=== PATIENT | female | born 1985 | race African-American/Black ===

== ENCOUNTER 2016-10-09 15:00 | Emergency (ER) | payer OTHER ==
[~2016-10-09] VITALS: Ht 162.6 cm; Wt 84.8 kg
[~2016-10-09 15:00] MED LIST: IBUPROFEN 600600 M1 PO; NORCO 5-325 TA1 EACH PO; PREDNISONE 5 MG5 M1; TRAMADOL 50 MG50 MG PO; ZANTAC 150MG T150 M1 PO; ZOFRAN ODT4 MG PO; ZPAK
[2016-10-09] MEDS ORDERED: HYDROCODONE-AP1 EAC6 PO (16:22)
[2016-10-09] MEDS ORDERED: AMOXICILLIN 50500 MG PO (16:29)
== END 2016-10-09 19:05 | disposition home or self-care (01) ==
LOC: ER 15:00
DX: S62.306A Unspecified fracture of fifth metacarpal bone, right hand, initial encounter for closed fracture (principal); F17.210 Nicotine dependence, cigarettes, uncomplicated; Z88.8 Allergy status to other drugs, medicaments and biological substances; W23.0XXA Caught, crushed, jammed, or pinched between moving objects, initial encounter; Y93.89 Activity, other specified; Y92.89 Other specified places as the place of occurrence of the external cause; Y99.8 Other external cause status

== ENCOUNTER 2017-08-20 15:31 | Emergency (ER) | payer OTHER ==
[~2017-08-20] VITALS: Ht 162.6 cm; Wt 104.3 kg
[~2017-08-20 15:31] MED LIST changes: +AMOXICILLIN 50500 MG PO; +HYDROCODONE-AP1 EAC6 PO
[2017-08-20 15:50] LABS: URINE BILIRUBIN NEGATIVE (Negative); URINE BLOOD NEGATIVE (Negative); URINE CLARITY CLEAR; URINE COLOR YELLOW; URINE GLUCOSE-RANDOM* NEGATIVE (Negative); URINE KETONES NEGATIVE (Negative); URINE LEUKOCYTES NEGATIVE (Negative); URINE NITRITE NEGATIVE (Negative); URINE PROTEIN (DIPSTICK) NEGATIVE (Negative); URINE SPECIFIC GRAVITY 1.025 (1.005-1.035); URINE UROBILINOGEN 0.2 E.U./dl (0.2-1.0)
[2017-08-20 19:05] LABS: ABSOLUTE NEUTROPHILS 3.3 thou/uL (1.4-8.2); BASOPHILS 0.6 % (0.0-2.0); EOSINOPHILS 0.9 % (0.0-3.0); HEMATOCRIT 36.4 % (37.0-47.0); HEMOGLOBIN 11.9 gm/dL (12.0-15.0); LYMPHOCYTES 36.1 % (24.0-44.0); MCH 27.8 pg (26.0-34.0); MCHC 32.8 g/dL (28.0-37.0); MCV 84.9 fL (80.0-100.0); MONOCYTES 5.5 % (1.0-8.0); PLATELET COUNT 421 thou/uL (150-400); POLYS 56.9 % (36.0-66.0); RBC 4.29 mil/uL (4.20-5.00); WBC 5.8 thou/uL (4.0-11.0)
[2017-08-20 19:14] LABS: CALCIUM 8.6 mg/dL (8.5-10.1); CREATININE 0.7 mg/dL (0.6-1.0); POTASSIUM 4.3 mmol/L (3.5-5.1)
[2017-08-20 19:20] LABS: ALBUMIN 3.5 g/dL (3.4-5.0); TOTAL BILIRUBIN 0.2 mg/dL (<0.1-1.0); TOTAL PROTEIN 7.3 g/dL (6.4-8.2)
[2017-08-20] MEDS ORDERED: BENTYL 20 MG TA20 M1 PO (20:39)
[2017-08-20] MEDS ORDERED: ZOFRAN ODT4 M1 PO (20:39)
[2017-08-20] MEDS ORDERED: MOBIC15 MG PO (21:01)
[2017-08-20] MEDS ORDERED: TRAMADOL 50 MG50 MG PO (21:02)
[2017-08-20] MEDS ORDERED: HYDROCODONE-AP1 EAC6 PO (21:05)
== END 2017-08-20 21:17 | disposition home or self-care (01) ==
LOC: ER 15:31
PROVIDERS: Nurse Practitioner Family; Physician Assistant
DX: R10.9 Unspecified abdominal pain (principal); R11.2 Nausea with vomiting, unspecified; Z88.5 Allergy status to narcotic agent; Z88.8 Allergy status to other drugs, medicaments and biological substances; F17.210 Nicotine dependence, cigarettes, uncomplicated

== ENCOUNTER 2018-10-26 23:42 | Emergency (ER) | payer OTHER ==
[~2018-10-26] VITALS: Ht 165.1 cm; Wt 121.6 kg
[~2018-10-26 23:42] MED LIST changes: +BENTYL 20 MG TA20 M1 PO; +MOBIC15 MG PO; +ZOFRAN ODT4 M1 PO
[2018-10-26] MEDS ORDERED: UNICOMPLEX M TA1 TA1 PO (23:50)
[2018-10-27] MEDS ORDERED: IBUPROFEN 400400 M2 PO (01:51)
[2018-10-27] MEDS ORDERED: FLEXERIL PO (01:51)
[2018-10-27 02:11] VITALS: BP 132/49
== END 2018-10-27 02:23 | disposition home or self-care (01) ==
LOC: ER 23:42
DX: M62.830 Muscle spasm of back (principal); M25.561 Pain in right knee; F17.210 Nicotine dependence, cigarettes, uncomplicated; Z88.8 Allergy status to other drugs, medicaments and biological substances; Z88.6 Allergy status to analgesic agent; Z88.0 Allergy status to penicillin; Z90.49 Acquired absence of other specified parts of digestive tract; V48.4XXA Person boarding or alighting a car injured in noncollision transport accident, initial encounter; Y92.89 Other specified places as the place of occurrence of the external cause; Y93.89 Activity, other specified; Y99.8 Other external cause status

== ENCOUNTER 2019-02-27 17:00 | Inpatient (IN) | payer OTHER ==
[~2019-02-27] VITALS: Ht 165.1 cm; Wt 149.7 kg
--- NOTE | ~2019-02-27 | P ---
[facility] [place] [address] PROCEDURE REPORT Name: HIGUERAGEORGES Room #: 458-P [facility] IN M.R.#: [id number] Admission: 02/27/19 Attend Phys: Joselito Villalpando MD Discharge: 03/06/19 Date of : 89 Report #: [id number] THIS REPORT FOR: //name// CC: FAM unknown Joselito Villalpando INPATIENT COLONOSCOPY BRIEF HISTORY: The patient is a 33-year-old woman who recently was on a trip to [place] and when she returned, she has had persistent nausea and vomiting and diarrhea. She also has had severe abdominal pain. She does not have any symptoms prior to her trip to [place]. PREOPERATIVE DIAGNOSES: Persistent diarrhea and abdominal pain. POSTOPERATIVE DIAGNOSES: 1. Few diverticula scattered throughout the colon. 2. Small internal hemorrhoids. MEDICATIONS: Deep sedation with propofol per anesthesia. SPECIMENS: 1. Biopsies proximal colon, rule out microscopic colitis. 2. Biopsies of distal colon and rectum, rule out colitis. ESTIMATED BLOOD LOSS: 3 mL. PROCEDURE: Colonoscopy to cecum and terminal ileum with biopsy. FINDINGS: Prior to propofol sedation, procedure of colonoscopy discussed with the patient as well potential risks and its complications. She indicates she understands and desires to proceed. DESCRIPTION OF PROCEDURE: With the patient in left lateral decubitus position, digital examination was completed which revealed no abnormalities. Subsequently, the Olympus video colonoscope was introduced in the rectum, advanced under direct vision to the cecum. The cecum was filled with greenish solid material. This could not be aspirated away. I could only see a small amount of the cecal mucosa and the cecal mucosa that I could see was normal. However, I could see the ileocecal valve and we were able to intubate the ileum and examined the distal segment of terminal ileum. There was some retained material in the distal ileum. The mucosa was normal. No ulcerations or inflammatory changes were seen. At that point, the scope was slowly withdrawn and careful circumferential views were obtained. Upon slow withdrawal of the scope, the mucosa was inspected. The prep in the cecum was very poor. However, as far as the remainder of the colon, much of the prep was quite good. However, in particular the left colon, there were a few scattered areas of semi-solid [facility] [address] [address] PROCEDURE REPORT Name: GEORGES HIGUERA Roland Room #: 458-P [facility] IN [facility].#: [id number] Admission: 02/27/19 Attend Phys: Joselito Villalpando MD Discharge: 03/06/19 Date of : 89 Report #: [id number] material which could not be aspirated. However, much of the mucosa could be seen and there was no evidence of inflammatory disease, no ulcers were seen. Scope was withdrawn in the rectum, no abnormalities were seen. Upon retroflexion, small hemorrhoids were seen. Scope was withdrawn. The patient tolerated the procedure well. CONDITION OF THE PATIENT UPON DISCHARGE: Following procedure, the patient drowsy, aroused, conversant. DISPOSITION: The patient with persistent abdominal pain and diarrhea following a trip to [place]. No evidence of colitis on exam today. Source of her diarrhea is not entirely clear. It was thought she had traveler's diarrhea, but has been on empiric antibiotics and workup to date has been nondiagnostic. At this point, we would treat symptomatically and follow up on biopsies. Withdrawal time from the cecum was 7 minutes 12 seconds. By: [id number] Juanito Milton MD /nt
[~2019-02-27 17:00] MED LIST changes: +FLEXERIL PO; +IBUPROFEN 400400 M2 PO; +UNICOMPLEX M TA1 TA1 PO
[2019-02-27 17:01] VITALS: BP 166/53
[2019-02-27 17:30] LABS: URINE BILIRUBIN NEGATIVE (Negative); URINE BLOOD NEGATIVE (Negative); URINE CLARITY CLEAR; URINE COLOR YELLOW; URINE GLUCOSE-RANDOM* NEGATIVE (Negative); URINE KETONES NEGATIVE (Negative); URINE LEUKOCYTES-REFLEX NEGATIVE (Negative); URINE NITRITE-REFLEX NEGATIVE (Negative); URINE PROTEIN (DIPSTICK) NEGATIVE (Negative); URINE SPECIFIC GRAVITY 1.015 (1.005-1.035); URINE UROBILINOGEN 0.2 E.U./dl (0.2-1.0)
[2019-02-27 17:41] LABS: ABSOLUTE NEUTROPHILS 6.6 thou/uL (1.4-8.2); BASOPHILS 0.5 % (0.0-2.0); HEMATOCRIT 33.3 % (37.0-47.0); HEMOGLOBIN 10.8 gm/dL (12.0-15.0); MCH 28.3 pg (26.0-34.0); MCHC 32.4 g/dL (28.0-37.0); MCV 87.3 fL (80.0-100.0); MONOCYTES 5.4 % (1.0-8.0); PLATELET COUNT 389 thou/uL (150-400); POLYS 74.1 % (36.0-66.0); RBC 3.81 mil/uL (4.20-5.00); RDW 14.6 % (10.5-14.5); WBC 8.9 thou/uL (4.0-11.0)
[2019-02-27 17:48] LABS: CALCIUM 8.6 mg/dL (8.5-10.1)
[2019-02-27] MEDS ORDERED: PROTONIX40 M1 PO (17:48)
[2019-02-27] MEDS ORDERED: MELATONIN5 M1 PO (17:48)
[2019-02-27 17:54] LABS: ALBUMIN 3.1 g/dL (3.4-5.0); TOTAL BILIRUBIN 0.2 mg/dL (<0.1-1.0); TOTAL PROTEIN 6.7 g/dL (6.4-8.2)
--- NOTE | 2019-02-27 19:50 | NUR ---
PATIENT WAS FEELING VERY ANXIOUS AFTER ADMINISTRATION OF COMPAZINE. PHYSICIAN NOTIFIED. ADDITIONAL ORDERS RECEIVED
--- NOTE | 2019-02-27 21:54 | NUR ---
PATIENT GIVEN ANOTHER DOSE OF PAIN MEDICATIONS. SIDE EFFECTS EXPLAINED TO AVOID PANIC AFTER RECEIVING MEDICATION. PATIENT COACHED TO TAKE SLOW DEEP BREATHS UNTIL SIDE EFFECTS SUBSIDED. PATIENT WILL BE ASSISTED TO RESTROOM SHORTLY. ADVISED THAT A STOOL SAMPLE HAS BEEN ORDERED IF PATIENT ABLE TO PROVIDE.
[2019-02-27 22:27] VITALS: BP 126/74
--- NOTE | 2019-02-27 22:28 | NUR ---
HAND OFF TOOL PRINTED TO 4 EAST
--- NOTE | 2019-02-27 22:30 | NUR ---
ATTEMPTED TO CALL REPORT. NURSE WILL CALL BACK
[2019-02-27 22:49] VITALS: BP 142/64
--- NOTE | 2019-02-27 22:50 | NUR ---
REPORT TO INPATIENT NURSE, Alex ZAMUDIO
--- NOTE | 2019-02-28 04:20 | NUR ---
PATIENT ARRIVED ON UNIT AT 2252 VIA W/C ACCOMPANIED BY ED PERSONEL. PATIENT ALERT AND ORIENTED X4. C/O PAIN. MED GIVEN. DENIES N/V AT THIS TIME. WAS GIVEN SPRITE WHICH SHE DRANK WITH NO PROBLEM. SLEPT MOST OF NIGHT.
[2019-02-28 04:22] VITALS: BP 119/54
[2019-02-28 08:17] VITALS: BP 124/66
--- NOTE | 2019-02-28 12:08 | NUR ---
PT A&OX4, IV INFUSING FLUIDS W/O COMPS. AMBULATES WITH STAND BY ASSIST. STOOL COLLECTED AND SENT TO LAB, STOOL WAS ALMOST FORMED, BROWN W/O FOUL SMELL. PT IS PLACED ON C DIFF ISOLATION FOR PRECAUTION. PT HAVING ABD PAIN WITH NAUSEA THIS AM, IV PAIN AND ANTIEMETIC GIVEN. WILL CONT POC.
[2019-02-28 17:18] VITALS: BP 138/71
--- NOTE | 2019-03-01 00:35 | NUR ---
ASSESSMENT COMPLETED.PT C/O PAIN ON HER ABD,MANAGED WITH MED.TYLENOL ALSO GIVEN FOR HEADACHE,EFFECTIVE.PT STARTED HAVING LOOSE STOOL THIS SHIFT,SAMPLE COLLECTED AND SENT DOWN.PT ON PRESUMPTIVE CDIFF,ISOLATION PREACUTIONS ENFORCED.PT UP ADLIB IN ROOM.PT RESTING COMFORTABLY ON HER BED AT THIS TIME.IVF INFUSING .CALL LIGHT WITHIN REACH.
[2019-03-01 03:48] VITALS: BP 124/63
[2019-03-01 08:02] VITALS: BP 114/52
--- NOTE | 2019-03-01 15:28 | NUR ---
Manufacturing Specialist visited with the pt at bedside. She is a&ox4 and reports continued nausea/vomiting and abd pain. She notes that she is indep with gait and adl's and was recently on a cruise. She works and does not currently have health insurance. She was visited by [employer] and will work with them on the milla application. She has a pcp Dr. Sunita Escobar for f/u care. Pharmacy discount card and safteynet packet provided. Will follow along should the pt need script assistance at vt.
[2019-03-01 16:05] VITALS: BP 141/88
[2019-03-01 17:27] LABS: HEMATOCRIT 32.7 % (37.0-47.0); HEMOGLOBIN 10.8 gm/dL (12.0-15.0); MCHC 32.9 g/dL (28.0-37.0); RBC 3.85 mil/uL (4.20-5.00); RDW 14.3 % (10.5-14.5); WBC 5.4 thou/uL (4.0-11.0)
[2019-03-01 17:37] LABS: ALBUMIN 3.2 g/dL (3.4-5.0); CALCIUM 8.9 mg/dL (8.5-10.1); CREATININE 0.9 mg/dL (0.6-1.0); POTASSIUM 4.1 mmol/L (3.5-5.1); TOTAL BILIRUBIN 0.3 mg/dL (<0.1-1.0); TOTAL PROTEIN 6.8 g/dL (6.4-8.2)
--- NOTE | 2019-03-01 19:38 | NUR ---
Assumed care of pt at 0700. Pt a&ox4. C/o nausea and abdominal pain. Pain controlled with prn pain meds. Pt accidentally pulled IV out. New IV placed on pt's left AC. Up ad kerrie. IVF and antibiotics infusing. Call light within reach.
[2019-03-01 21:32] VITALS: BP 128/75
[2019-03-02 04:30] VITALS: BP 123/57
[2019-03-02 05:13] LABS: HEMATOCRIT 32.6 % (37.0-47.0); HEMOGLOBIN 10.6 gm/dL (12.0-15.0); MCH 27.7 pg (26.0-34.0); MCHC 32.6 g/dL (28.0-37.0); MCV 84.7 fL (80.0-100.0); RBC 3.85 mil/uL (4.20-5.00); RDW 14.1 % (10.5-14.5); WBC 4.7 thou/uL (4.0-11.0)
[2019-03-02 05:41] LABS: ALBUMIN 3.1 g/dL (3.4-5.0); CALCIUM 8.9 mg/dL (8.5-10.1); MAGNESIUM 1.7 mg/dL (1.8-2.4); POTASSIUM 4.2 mmol/L (3.5-5.1); TOTAL BILIRUBIN 0.3 mg/dL (<0.1-1.0); TOTAL PROTEIN 6.7 g/dL (6.4-8.2)
--- NOTE | 2019-03-02 06:16 | NUR ---
A/O. Compained pain in abdomen 10/10 at AM , pain medicaion given, patient claimed of no pain relief. CHOCOLATE PRODUCTION MACHINE OPERATOR Addis called, pain medication order given and administrated( see EMAR). Patient claimed pain relieved from 10 to 9. Refused Bendry. Claimed BM twice. The staff saw the second BM, brown color. Patient asked for food other than clear liquid, the staff refused and explained the diet to the patient. Bed rest now.
[2019-03-02 08:52] VITALS: BP 121/58
--- NOTE | 2019-03-02 10:51 | NUR ---
Assess due to high BMI 55=extreme class III obesity. admit with n/v/d and workup continues. Cdiff negative. Starting day 3 clear liquids, pt has voiced recent hunger but needs to remain on clears for now. Can offer Ensure Clear bid for added protein. Low nutrition risk at this time.
--- NOTE | 2019-03-02 15:33 | NUR ---
Assumed care of pt 0700. Pt a&ox4. Prn fentanyl given. Pt states . said he will change pain medication to dilaudid. paged and verified, stated he will make the change himself. Pt's sister ordered breadsticks for pt. Pt is on clear liquid diet. Pt education provided. Pt decides to eat breadsticks. Pt nauseous and vomiting. IVF and IV antibiotics infusing. Up ad kerrie in room. Call light within reach. Will continue to monitor.
[2019-03-02 15:44] VITALS: BP 153/80
[2019-03-02 19:48] VITALS: BP 140/69
--- NOTE | 2019-03-03 03:11 | NUR ---
ASSUMED PT CARE 1900. PT ALERT AND ORIENTED. REASSESSMENT COMPLETE. VSS. IV DRESSING C/D/I. PT NON COMPLIANT WITH CLEAR LIQUID DIET, VOMITING EPISODE X1. PT REPORTED 1 FORMED BM. CALL LIGHT AND PERSONAL BELONINGS WITHIN REACH. NPO AT MIDNIGHT. WILL CONTINUE POC UNTIL EOS.
[2019-03-03 04:09] VITALS: BP 132/56
[2019-03-03 07:29] VITALS: BP 132/65
--- NOTE | 2019-03-03 11:06 | NUR ---
PATIENT CARE WAS ASSUMED AT 0715.PATIENT IS ALERT AND ORIENTED X4.PATIENT IS NPO AFTER MIDNIGHT FOR EGD.PATIENT HAS SOME NAUSEA, AND PAIN.MEDICATIONS WERE GIVEN. IV IS PATENT AND HAS FLUIDS INFUSING.PT IS ABLE TO AMBULATE WITH STAND BY ASSIST DUE TO IV.PT HAS CALL LIGHT,PHONE, AND PERSONAL BELONGINGS WITHIN REACH.
[2019-03-03 16:10] VITALS: BP 129/86
[2019-03-03 22:57] VITALS: BP 147/58
[2019-03-04 04:11] VITALS: BP 102/44
--- NOTE | 2019-03-04 04:22 | NUR ---
ASSUMED PT CARE 190. PT ALERT AND ORIENTED. REASSESSMENT COMPLETE. VSS. IV DRESSING C/D/I. REPORTS PAIN, DENIES N/V. PT ATE SOME CRACKERS, DENIES ANY NAUSEA/VOMITING. EDUCATED PT ABOUT SLOWLY REINTRODUCING SOLID FOODS BACK INTO DIET. SIGNIFICANT OTHER AT BEDSIDE. CALL LIGHT AND PERSONAL BELONINGS WITHIN REACH, WILL CONTINUE POC UNTIL EOS.
[2019-03-04 08:12] VITALS: BP 133/70
[2019-03-04 15:20] VITALS: BP 102/51
--- NOTE | 2019-03-04 16:34 | NUR ---
PT VS STABLE THROUGHOUT SHIFT. PT TOLERATED BREAKFAST WELL, HOWEVER SHE THREW UP ENTIRE LUNCH. PT'S DIET CHANGED TO NPO AND PHYSICIAN COUNSELED HER REGARDING COMPLIANCE WITH DIET ORDERS. PT C/O PAIN THROUGHOUT SHIFT, PAIN MEDS GIVEN WHICH OFFERED RELIEF. PT RESTING COMFORTABLY.
[2019-03-04 19:32] VITALS: BP 134/65
[2019-03-05 05:09] VITALS: BP 128/84
[2019-03-05 06:47] LABS: HEMATOCRIT 33.2 % (37.0-47.0); HEMOGLOBIN 10.8 gm/dL (12.0-15.0); MCH 27.8 pg (26.0-34.0); MCHC 32.6 g/dL (28.0-37.0); MCV 85.4 fL (80.0-100.0); RBC 3.89 mil/uL (4.20-5.00); RDW 14.6 % (10.5-14.5); WBC 4.8 thou/uL (4.0-11.0)
[2019-03-05 07:01] LABS: APTT 24.5 Seconds (24.5-32.8); PROTIME 10.7 Seconds (9.3-11.4)
[2019-03-05 07:07] LABS: ALBUMIN 3.2 g/dL (3.4-5.0); CALCIUM 8.8 mg/dL (8.5-10.1); MAGNESIUM 1.7 mg/dL (1.8-2.4); POTASSIUM 3.9 mmol/L (3.5-5.1); TOTAL BILIRUBIN 0.3 mg/dL (<0.1-1.0); TOTAL PROTEIN 6.5 g/dL (6.4-8.2)
[2019-03-05 07:23] VITALS: BP 128/74
--- NOTE | 2019-03-05 08:12 | NUR ---
ASSESSMENTS CHARTED. C/O PAIN THROUGHOUT SHIFT. STARTED ATIVAN TO ENHANCE PAIN MEDS. PATIENT SLEPT MOST OF THE NIGHT. UP AT [place] IN ROOM.
[2019-03-05 19:27] VITALS: BP 136/78
--- NOTE | 2019-03-06 04:04 | NUR ---
PATIENT TRANSFERRED FROM [facility] ROOM 426 AT 1844 VIA BED WITH TWO CARPENTER FOREMAN'S. ALERT AND ORIENTED X4. COMPLAINING OF PAIN IMMEDIATELY UPON ARRIVAL, HOWEVER, IT WAS NOT TIME FOR PAIN MEDICATION. SHE STATED THAT THE DOCTOR SAW HER TODAY AND TOLD HER THAT HE WOULD GIVE HER A NEW ORDER FOR HER BREAKTHROUGH PAIN WHICH WOULD BE A PILL. THIS WAS NOT DONE, HOWEVER THERE WAS A CHANGE TO THE DOSEAGE OF DILAUDID IV PRN WELL THE TIME. AFTER THIS WAS EXPLAINED THE PATIENT INSISTED THAT HE BE CALLED FOR AN ORDER. THIS NURSE CONTACTED THE API DEVELOPER (JERAD) AND RECEIVED AN ORDER FOR HYDROCODONE PO PRN IT IS ON HER LIST OF HOME MEDICATIONS. THIS WAS NOT GIVEN DUE TO THE PATIENT STATING THAT SHE HAD EMESIS EARLIER DRINKING HER GO-LYTELY PREP AND A PILL WOULD NOT BE TOLERATED ON HER STOMACH IN THIS NURSES OPINION. PATIENT THEN ASKED FOR HER SCHEDULED LORAZEPAM THEN DECIDED SHE WOULD WAIT AND TAKE THIS WITH HER IV DILAUDED AND ZOFRAN. THIS WAS GIVEN TO HER AT APPROX. 2240. SCHEDULED IVPB'S WERE GIVEN W/O COMPLICATION AND CONTINUOUS FLUIDS ARE INFUSING. PATIENT REQUESTED A SHOWER AND TOOK ONE. TOLERATED HER PREP AND IS USING THE BSC WITH DARK LIQUID STOOL. PATIENT HAS BEEN NPO SINCE 03/05/19 AT 2359. CONSENT FORM IS NOT SIGNED AT TIME OF THIS NOTE - ON THE CHART. LONG CONVERSATION REGARDING WHY THE DOCTOR DID NOT ORDER ANY BREAKTHROUGH MEDICATION. PATIENT ALSO STATED THAT THE REASON SHE WAS TRANSFERRED WAS BECAUSE THE NURSES DID NOT LIKE HER. THIS NURSE STATED THAT PATIENTS DID NOT TRANSFER FOR THAT REASON. RESTING QUIETLY AT TIME OF NOTE. WILL MONITOR.
--- NOTE | 2019-03-06 06:02 | NUR ---
PATIENT SLEPT WELL DURING THE NIGHT AFTER MEDICATION. STOOLS ARE LIQUID AND LIGHT BROWN. IVF INFUSING W/O COMPLICATION. WILL MONITOR.
[2019-03-06 09:57] VITALS: BP 128/58
--- NOTE | 2019-03-06 15:06 | PATH ---
[facility] [address] [place] [address] PATHOLOGY RPT PROCEDURE Name: QUEENIE HIGUERA Room #: 458-P ADM IN M.R.#: [id number] Admission: 02/27/19 Date of : 89 Discharge: Report #: [id number] Path Case #: [id number] [facility] Accession Number: [id number] . 01 Material submitted: . PART A: duodenum - BX DUODENUM R/O CELIAC DZ PART B: stomach - BX ANTRUM R/O H PYLORI . 01 Clinical history: . Pre-OP DX: Nausea with vomiting, abdominal pain Post-OP DX: Esophagitis, gastritis, hiatal hernia . 02 Diagnosis: A. Small bowel, duodenum, biopsy: - Mild chronic inflammation. - Normal villous architecture. . B. Stomach, antrum, biopsy: - Chronic superficial gastritis, mild. - No evidence of Helicobacter pylori on immunoperoxidase stain. . (LUZ:jeff; 03/06/2019) QL/03/06/2019 . 02 Electronically signed: . Junior Mendoza MD, Pathologist NPI- [id number] . 01 Gross description: . A. Received in formalin labeled "Queenie Higuera, BX of duodenum, rule out celiac," are 2 segments of yee soft tissue measuring 0.8 x 0.2 x 0.2 cm in aggregate dimensions and ranging from 0.3 to 0.5 cm in maximum dimension. The specimen is submitted entirely in cassette A1. . B. Received in formalin labeled "Geovani Queenie, BX antrum, rule out H. pylori," are 2 segments of yee soft tissue measuring 0.7 x 0.2 x 0.2 cm in aggregate dimensions and ranging from 0.3 to 0.4 cm in maximum dimension. The specimen is submitted entirely in cassette B1. (TSD; 03/03/2019) TOB/TOB . 02 Pathologist provided ICD-10: K29.80, K29.30 . 02 CPT . 679915, 997898, D04774 Specimen Comment: A courtesy [place] of [place] [address] PATHOLOGY RPT PROCEDURE Name: QUEENIE HIGUERA S Room #: 458-P [facility] IN M.R.#: [id number] Admission: 02/27/19 Date of : 89 Discharge: Report #: [id number] Path Case #: [id number] Specimen Comment: [phone]. Specimen Comment: Report sent to Performed at: [address], [place], [place] [id number] MD Luis Medel MD Phone: [phone] Performed at: [address] [facility] [id number] MD Nereida Day MD Phone: [phone]
[2019-03-06 16:13] VITALS: BP 119/67
[2019-03-06] MEDS ORDERED: TUCKS1 EAC1 TOP (17:27)
[2019-03-06] MEDS ORDERED: NORCO 5-325 TA1 EAC1 PO (17:27)
[2019-03-06] MEDS ORDERED: LEXAPRO 10 MG T10 M1 PO (17:27)
[2019-03-06] MEDS ORDERED: MAG-AL PLUS SUS30 ML PO (17:27)
[2019-03-06] MEDS ORDERED: TRANSDERM-SCOP1 EACH TRANSDERM (17:27)
[2019-03-06] MEDS ORDERED: BENTYL 20 MG TA20 M1 PO (17:27)
[2019-03-06] MEDS ORDERED: COLESTID1 GM PO (17:27)
[2019-03-06 17:55] VITALS: BP 119/67
--- NOTE | 2019-03-06 20:00 | NUR ---
MEDICATED Q4H WITH DILAUDID AND HELPFUL FOR PAIN. DENIED NAUSEA. COLONOSCOPY DONE THIS AFTERNOON. RETURNED TO FLOOR CRYING IN PAIN. MEDICATED WITH ATIVAN IN GI LAB, AND THEN DILAUDID GIVEN AND PATIENT HAS SLEPT SINCE THEN. DID DRINK SOME [place] BR[place] AND [place] SODA. TOLERATED WELL. PLAN IS TO DISCHARGE HOME THIS EVENING. PATIENT REQUESTING DR. MARINELLI BE CALLED HE DID NOT GIVE HER ENOUGH PAIN PILLS TO LAST A WEEK. REPORT GIVEN TO NIGHT NURSE LEATHA WHOM WILL ASSUME CARE AT THIS TIME.
--- NOTE | 2019-03-07 02:27 | NUR ---
PATIENT LEFT THE UNIT AT AROUND 1999, ESCORTED BY STAFF, VIA WHEEL CHAIR. SCOPOLAMINE PATCH APPLIED AND ZOFRAN GIVEN PER ORDER. PATIENT DENIED PAIN OR DISCOMFORT. IV REMOVED ON . DISCHARGE ORDER GIVEN.
--- NOTE | 2019-03-07 14:06 | PATH ---
[facility] [address] [place] [address] PATHOLOGY RPT PROCEDURE Name: QUEENIE HIGUERA Room #: 458-P DIS IN M.R.#: [id number] Admission: 02/27/19 Date of : 89 Discharge: 03/06/19 Report #: [id number] Path Case #: [id number] LCA Accession Number: [id number] . 01 Material submitted: . PART A: colon - BX OF PROXIMAL COLON RO R/O COLITIS. Modifiers: proximal PART B: colon - BX OF DISTAL COLON AND RECTUM R/O COLITIS. Modifiers: distal . 01 Clinical history: . Pre-OP DX: Abdominal pain, diarrhea Post-OP DX: Diverticulosis . 02 Diagnosis: A. Colon, proximal, biopsy: - Colonic mucosa with no pathologic diagnosis. . B. Colon, distal and rectum, biopsy: - Colonic mucosa with no pathologic diagnosis. (LUZ:jake; 03/07/2019) QTP/03/07/2019 . 02 Electronically signed: . Junior Mendoza MD, Pathologist NPI- [id number] . 01 Gross description: . A. Received in formalin labeled "Queenie Higuera, BX of proximal colon to rule out colitis," are 9 segments of yee soft tissue measuring 1.5 x 1.1 x 0.3 cm in aggregate dimensions and ranging from 0.3 to 0.5 cm in maximum dimension. The specimen is submitted entirely in cassette A1. . B. Received in formalin labeled "Queenie Higuera, BX of distal colon and rectum, rule out colitis," are 5 segments of yee soft tissue measuring 1.0 x 1.0 x 0.3 cm in aggregate dimensions and ranging from 0.3 to 0.6 cm in maximum dimension. The specimen is submitted entirely in cassette B1. (TSD; 03/06/2019) TOB/TOB . 02 Pathologist provided ICD-10: R10.9, R19.7 . 02 CPT . 161163, 570299 Specimen Comment: A courtesy copy of this report has been sent to Specimen Comment: [phone], . Specimen Comment: Report sent to / [place] [address] PATHOLOGY RPT PROCEDURE Name: QUEENIE HIGUERA S Room #: 458-P DIS IN M.R.#: [id number] Admission: 02/27/19 Date of : 89 Discharge: 03/06/19 Report #: [id number] Path Case #: [id number] Specimen Comment: A duplicate report has been generated due to demographic updates. Performed at: [address], [place] [id number] MD Luis Medel MD Phone: [phone] Performed at: [address] [id number] MD Nereida Day MD Phone: [phone]
== END 2019-03-06 20:30 | disposition home or self-care (01) | DRG 392 ==
LOC: ER 17:00 → 4E 21:04 → EROBS 21:04 → 4E 22:50 → 4W 03-05 18:43
PROVIDERS: Emergency Medicine; ADMIT Internal Medicine
PROC: 0DB98ZX Excision of Duodenum, Via Natural or Artificial Opening Endoscopic, Diagnostic (ICD-10-PCS; principal; 2019-03-03)
PROC: 0DB68ZX Excision of Stomach, Via Natural or Artificial Opening Endoscopic, Diagnostic (ICD-10-PCS; principal; 2019-03-03)
PROC: 0DBG8ZX Excision of Left Large Intestine, Via Natural or Artificial Opening Endoscopic, Diagnostic (ICD-10-PCS; 2019-03-06)
PROC: 0DBP8ZX Excision of Rectum, Via Natural or Artificial Opening Endoscopic, Diagnostic (ICD-10-PCS; 2019-03-06)
PROC: 0DBF8ZX Excision of Right Large Intestine, Via Natural or Artificial Opening Endoscopic, Diagnostic (ICD-10-PCS; 2019-03-06)
DX: K57.30 Diverticulosis of large intestine without perforation or abscess without bleeding (principal); Z68.43 Body mass index [BMI] 50.0-59.9, adult; K64.8 Other hemorrhoids; J45.909 Unspecified asthma, uncomplicated; E66.01 Morbid (severe) obesity due to excess calories; K76.0 Fatty (change of) liver, not elsewhere classified; K21.0 Gastro-esophageal reflux disease with esophagitis; K44.9 Diaphragmatic hernia without obstruction or gangrene; F41.9 Anxiety disorder, unspecified; K29.70 Gastritis, unspecified, without bleeding; F17.210 Nicotine dependence, cigarettes, uncomplicated; Z90.49 Acquired absence of other specified parts of digestive tract; Z98.891 History of uterine scar from previous surgery; Z79.899 Other long term (current) drug therapy; Z88.0 Allergy status to penicillin; Z88.8 Allergy status to other drugs, medicaments and biological substances; Z80.1 Family history of malignant neoplasm of trachea, bronchus and lung; Z82.49 Family history of ischemic heart disease and other diseases of the circulatory system
CPT/HCPCS: 10040; 10084; 62110; 62900; 70005